=== PATIENT | male | born 1940 | race Caucasian/White ===

== ENCOUNTER 2018-09-07 12:20 | Outpatient (CLI) | payer MEDICARE, SELFPAY ==
--- NOTE | 2018-09-07 12:04 | DI.US_ITS ---
SYMPTOMS/DIAGNOSIS: KNOWN METASTATIC PROSTATE CA, SWELLING LT FOOT/LOWER LEG, ? DVT, R22.42, C79.51, SWELLING, R60.9 LEFT LOWER EXTREMITY ULTRASOUND: The femoral and popliteal veins and visualized portions of the calf veins are freely compressible. No thrombus is visualized. There is edema on the dorsal aspect of the foot. No superficial venous thrombosis or sampson's cyst is seen. IMPRESSION: Soft tissue swelling. No evidence of DVT.
== END 2018-09-07 12:40 ==
PROVIDERS: PCP Nurse Practitioner Family; Visit Provider Radiology Radiation Oncology
DX: R22.42 Localized swelling, mass and lump, left lower limb (principal); R60.9 Edema, unspecified; M79.89 Other specified soft tissue disorders; C61 Malignant neoplasm of prostate
CPT/HCPCS: 93971